=== PATIENT | male | born 1945 | race Caucasian/White ===

== ENCOUNTER → 2017-12-06 07:42 | Outpatient (CLI) | payer OTHER, SELFPAY ==
[2017-12-06 08:40] LABS: Add Manual Diff / Slide Review NO; Basophils Percent Auto 0.8 % (0-2); Eosinophils Percent Auto 5.8 % (2-4); Hematocrit 41.3 % (41-53); Hemoglobin 14.1 g/dL (13.5-17.5); Lymphocytes Percent Auto 32.5 % (25-40); Mean Corpuscular HGB Conc 34.2 % (30-36); Mean Corpuscular Hemoglobin 32.3 PG (26-34); Mean Corpuscular Volume 94.4 fL (80-100); Neutrophils Absolute Auto 2200 /uL (3000-5900); Neutrophils Percent Auto 50.9 % (50-75); Platelet Count 78 X10^3/uL (150-400); Red Blood Cell Count 4.37 X10^6/uL (4.5-5.9); Red Cell Distribution Width 13.4 % (11.6-14.8); White Blood Cell Count 4.4 X10^3/uL (4.5-11.0)
[2017-12-06 08:54] LABS: Alanine Aminotransferase 20 IU/L (21-72); Albumin 3.9 g/dL (3.5-5.0); Albumin Globulin Ratio 1.6 (1.0-2.8); Alkaline Phosphatase 46 U/L (38-126); Aspartate Aminotransferase 20 IU/L (17-59); BUN Creatinine Ratio 18.3 (6-22); Bilirubin Total 0.7 mg/dL (0.2-1.3); Blood Urea Nitrogen 22 mg/dL (9-20); Carbon Dioxide 32 mmol/L (22-32); Chloride 105 mmol/L (98-107); Cholesterol 198 mg/dL (140-199); Estimated Glomerular Filt Rate 59.3 mL/min (>60); Globulin 2.5 g/dL (1.7-4.1); Glucose 102 mg/dL (80-110); HDL Cholesterol 62 mg/dL (40-60); HEMOLYSIS < 15 (0-50); LDL Cholesterol Calculated 120 mg/dL (<100); Sodium 143 mmol/L (137-145); Total Protein 6.4 g/dL (6.3-8.2); Triglycerides 82 mg/dL (35-150)
== END ==
PROVIDERS: PCP Internal Medicine; Visit Provider Internal Medicine
DX: I10 Essential (primary) hypertension (principal); K21.9 Gastro-esophageal reflux disease without esophagitis; D69.6 Thrombocytopenia, unspecified
CPT/HCPCS: 36415; 80053; 80061; 85025

== ENCOUNTER → 2018-09-10 07:43 | Outpatient (CLI) | payer MEDICARE, SELFPAY ==
[2018-09-10 09:15] LABS: Blood Urea Nitrogen 19 mg/dL (9-20); Calcium 9.2 mg/dL (8.4-10.2); Carbon Dioxide 29 mmol/L (22-32); Chloride 103 mmol/L (98-107); Cholesterol 211 mg/dL (140-199); Estimated Glomerular Filt Rate > 60.0 mL/min (>60); Glucose 111 mg/dL (80-110); HDL Cholesterol 78 mg/dL (40-60); HEMOLYSIS < 15 (0-50); LDL Cholesterol Calculated 123 mg/dL (<100); Potassium 4.6 mmol/L (3.4-5.1); Sodium 137 mmol/L (137-145); Triglycerides 51 mg/dL (35-150)
== END ==
PROVIDERS: PCP Internal Medicine; Visit Provider Internal Medicine
DX: E78.00 Pure hypercholesterolemia, unspecified (principal); I10 Essential (primary) hypertension
CPT/HCPCS: 36415; 80048; 80061

== ENCOUNTER → 2018-10-02 07:30 | Outpatient (CLI) | payer MEDICARE, SELFPAY ==
--- NOTE | 2018-10-02 | DI.US.S_ITS ---
PROCEDURE: US ABD AORTA ANEURYSM SCREEN INDICATIONS: SCREENING FOR AAA TECHNIQUE: Real time scanning was performed of the aorta and iliac arteries, with image documentation. COMPARISON: None. FINDINGS: Aorta: Proximal aorta is not visualized. Mid-aorta measures 1.6 cm. Distal aortic diameter is 1.5 cm. Iliac arteries: Right common iliac artery measures 0.9 cm. Left common iliac artery measures 0.9 cm. IMPRESSION: No aneurysmal dilation of the abdominal aorta, noting the proximal portion is not visualized secondary to overlying bowel gas. Dictated by: Bere Vasquez M.D. on 10/02/2018 at 11:07 Approved by: Bere Vasquez M.D. on 10/02/2018 at 11:08
== END ==
PROVIDERS: PCP Internal Medicine; Visit Provider Internal Medicine
DX: Z13.6 Encounter for screening for cardiovascular disorders (principal)
CPT/HCPCS: 76706

== ENCOUNTER → 2019-06-26 07:00 | Outpatient (CLI) | payer MEDICARE, SELFPAY ==
--- NOTE | 2019-06-26 | DI.US.S_ITS ---
PROCEDURE: US ABDOMEN COMPLETE INDICATIONS: LEFT UPPER QUADRANT PAIN TECHNIQUE: Real-time scanning was performed of the abdominal and retroperitoneal organs, with image documentation. COMPARISON: None. FINDINGS: Liver: Liver is normal in size and homogeneous in echotexture. Gallbladder: The gallbladder appears normal Biliary ducts: Intrahepatic bile ducts are non-dilated. Extrahepatic bile duct caliber measures 4.5 mm. Normal is 6-7 mm or less in diameter, or 10 mm or less post-cholecystectomy. Pancreas: Visualized portions of the pancreas are sonographically normal. Spleen: Spleen is normal in size and homogeneous in echotexture. Kidneys: Kidneys are normal in size and echotexture. Right kidney measures 9.8 cm long; left kidney measures 10.3 cm long. No hydronephrosis or nephrolithiasis. No solid masses. Aorta: Visualized aorta is normal in caliber at less than 3 cm. Iliacs: Proximal common iliac arteries are normal in caliber at less than 2.5 cm. IVC: Intrahepatic inferior vena cava is patent. Miscellaneous: No free abdominal fluid. IMPRESSION: Source of current symptoms is not found. Depending on the clinical status followup by CT scanning may become necessary. Significant portions of the abdomen/retroperitoneum are poorly visualized by ultrasound due to overlying bowel gas. Dictated by: Tanner Mckenna M.D. on 06/26/2019 at 14:24 Approved by: Tanner Mckenna M.D. on 06/26/2019 at 14:29
--- NOTE | 2019-10-07 09:26 | ONC.MSW ---
Description: New Referral Navigation Activity: Reviewed referral for acuity, medical status, and immediate needs. Forwarded to scheduling for next available appt time.
== END ==
PROVIDERS: PCP Internal Medicine; Referring Provider Family Medicine; Visit Provider Family Medicine
DX: R10.12 Left upper quadrant pain (principal); D75.89 Other specified diseases of blood and blood-forming organs
CPT/HCPCS: 76700

== ENCOUNTER → 2019-11-15 14:20 | Outpatient (CLI) | payer MEDICARE, SELFPAY ==
[2019-11-15 16:37] LABS: BUN Creatinine Ratio 18.6 (6-22); Blood Urea Nitrogen 18 mg/dL (9-20); Calcium 9.1 mg/dL (8.4-10.2); Carbon Dioxide 30 mmol/L (22-32); Chloride 104 mmol/L (98-107); Estimated Glomerular Filt Rate > 60.0 mL/min (>60); Glucose 92 mg/dL (80-110); HEMOLYSIS < 15 (0-50); Potassium 4.3 mmol/L (3.4-5.1); Sodium 137 mmol/L (137-145)
== END ==
PROVIDERS: PCP Internal Medicine; Referring Provider Internal Medicine; Visit Provider Internal Medicine
DX: E78.00 Pure hypercholesterolemia, unspecified (principal); I10 Essential (primary) hypertension
CPT/HCPCS: 36415; 80048

== ENCOUNTER → 2020-08-14 14:36 | Outpatient (ROUT) | payer OTHER, SELFPAY ==
[2020-08-14 15:00] LABS: Add Manual Diff / Slide Review NO; Basophils Absolute Auto 0 /uL (0-100); Eosinophils Absolute Auto 100 /uL (0-450); Eosinophils Percent Auto 3.1 % (2-4); Hematocrit 40.1 % (41-53); Hemoglobin 13.5 g/dL (13.5-17.5); Lymphocytes Absolute Auto 900 /uL (1100-4500); Lymphocytes Percent Auto 24.7 % (25-40); Mean Corpuscular HGB Conc 33.6 % (30-36); Mean Corpuscular Hemoglobin 31.1 PG (26-34); Mean Corpuscular Volume 92.7 fL (80-100); Monocytes Absolute Auto 400 /uL (0-900); Monocytes Percent Auto 10.6 % (3-14); Neutrophils Absolute Auto 2200 /uL (1500-7000); Neutrophils Percent Auto 60.6 % (50-75); Platelet Count 75 X10^3/uL (150-400); Red Blood Cell Count 4.33 X10^6/uL (4.5-5.9); Red Cell Distribution Width 13.2 % (11.6-14.8); White Blood Cell Count 3.7 X10^3/uL (4.5-11.0)
== END ==
PROVIDERS: PCP Internal Medicine; Visit Provider Internal Medicine
DX: K62.5 Hemorrhage of anus and rectum (principal)
CPT/HCPCS: 85025

== ENCOUNTER 2021-05-03 13:27 | Emergency (ER) | payer MEDICARE, OTHER, SELFPAY ==
[2021-05-03] VITALS (7 sets, daily range): BP systolic 124–138; BP diastolic 60–64; PULSE 51–60; RESP 18; TEMP 36.5; O2SAT 97–98; BMI 26.5
--- NOTE | 2021-05-03 13:40 | DI.RAD.S_ITS ---
PROCEDURE: XR CHEST 1V INDICATIONS: chest pain TECHNIQUE: One view of the chest was acquired. COMPARISON: [facility], , CHEST 2 VIEW, 06/08/2016, 16:05. FINDINGS: Surgical changes and devices: None. Lungs and pleura: Lungs are clear. No pleural effusions or pneumothorax. Mediastinum: Mediastinal contours appear normal. Heart size is normal. Bones and chest wall: No suspicious bony lesions. Overlying soft tissues appear unremarkable. IMPRESSION: No acute cardiopulmonary pathology. Dictated by: René Andino M.D. on 05/03/2021 at 15:08 Approved by: René Andino M.D. on 05/03/2021 at 15:09
[2021-05-03 14:12] LABS: COVID19 -Nasal RAPID Negative (Negative)
[2021-05-03 14:25] LABS: Add Manual Diff / Slide Review NO; Basophils Absolute Auto 0 /uL (0-100); Basophils Percent Auto 0.8 % (0-2); Eosinophils Absolute Auto 200 /uL (0-450); Eosinophils Percent Auto 3.5 % (2-4); Hemoglobin 13.5 g/dL (13.5-17.5); Lymphocytes Absolute Auto 1000 /uL (1100-4500); Lymphocytes Percent Auto 18.3 % (25-40); Mean Corpuscular HGB Conc 34.5 % (30-36); Mean Corpuscular Hemoglobin 31.8 PG (26-34); Mean Corpuscular Volume 92.2 fL (80-100); Monocytes Absolute Auto 600 /uL (0-900); Monocytes Percent Auto 10.7 % (3-14); Neutrophils Absolute Auto 3700 /uL (1500-7000); Neutrophils Percent Auto 66.7 % (50-75); Platelet Count 85 X10^3/uL (150-400); Red Blood Cell Count 4.23 X10^6/uL (4.5-5.9); Red Cell Distribution Width 13.2 % (11.6-14.8); White Blood Cell Count 5.6 X10^3/uL (4.5-11.0)
[2021-05-03 14:38] LABS: Alanine Aminotransferase 20 IU/L (<50); Albumin 4.2 g/dL (3.5-5.0); Albumin Globulin Ratio 1.7 (1.0-2.8); Alkaline Phosphatase 60 U/L (38-126); Aspartate Aminotransferase 31 IU/L (17-59); BUN Creatinine Ratio 21.3 (6-22); Bilirubin Total 0.5 mg/dL (0.2-1.3); Blood Urea Nitrogen 23 mg/dL (9-20); Calcium 9.2 mg/dL (8.4-10.2); Carbon Dioxide 28 mmol/L (22-32); Chloride 105 mmol/L (98-107); Creatine Kinase 76 U/L (55-170); Estimated Glomerular Filt Rate > 60.0 mL/min (>60); Globulin 2.5 g/dL (1.7-4.1); Glucose 99 mg/dL (80-110); HEMOLYSIS < 15 (0-50); Lipase 95 U/L (23-300); Magnesium 2.2 mg/dL (1.6-2.3); Potassium 4.6 mmol/L (3.4-5.1); Sodium 137 mmol/L (137-145); Total Protein 6.7 g/dL (6.3-8.2)
[2021-05-03 14:49] LABS: Troponin I < 0.012 ng/mL (0.01-0.034)
--- NOTE | 2021-05-03 16:48 | ED_ITS ---
HPI - Chest Pain <Raciel Lawler PA-C - Last Filed: 05/03/21 18:28> General Chief Complaint: Chest Pain Stated Complaint: Chest pains Time Seen by Provider: 05/03/21 15:38 Source: patient Mode of arrival: Ambulatory History of Present Illness HPI narrative: 76-year-old male with past medical history hypercholesterolemia, hypertension, BPH presents to the ED with 1 day of left-sided chest pain. Patient states he was lifting some heavy weights yesterday but denies trauma. Patient states that his left-sided chest pain lasted for about an hour this morning before spontaneously resolving. Patient endorses feeling flushed and warm. Patient also states that he has had some night sweats over the last week, increased fatigue. Patient denies shortness of breath, nausea, vomiting, lightheadedness, dizziness, syncope. Related Data Home Medications Medication Instructions Recorded Confirmed ASCORBIC ACID/BIOFLAVONOIDS (C 1 cap PO Q DAY #0 08/20/11 01/21/21 1,143-[id number] Cap) Red Yeast Rice (#RED YEAST RICE) 600 mg PO BID #0 04/07/12 01/21/21 Vitamin Compound 8 tab DAILY 10/24/19 01/21/21 amlodipine 5 mg tablet 10 mg PO DAILY 10/24/19 01/21/21 glucosamine sulf dipot 1 cap PO DAILY 10/24/19 01/21/21 chlr,msm,chond 550 mg-C 30 mg-lana 1 mg capsule (Glucosamine Chondroitin) losartan 100 mg tablet 100 mg PO DAILY 10/24/19 01/21/21 terazosin 10 mg capsule 10 mg PO DAILY 10/24/19 01/21/21 Nmn 1 g DAILY 01/21/21 01/21/21 resveratrol 50 mg capsule mg PO DAILY 01/21/21 Allergies Allergy/AdvReac Type Severity Reaction Status Date / Time meloxicam [MELOXICAM] Allergy Unknown Unverified 07/12/17 12:03 simvastatin [SIMVASTATIN] Allergy Unknown Unverified 07/12/17 12:03 MELOXICAM Allergy Severe High Blood Uncoded 07/12/17 12:03 Pressure SIMVASTATIN Allergy Severe Muscle Uncoded 07/12/17 12:03 Stiffness Review of Systems <Raciel Lawler PA-C - Last Filed: 05/03/21 18:28> Review of Systems ROS Unobtainable: All systems reviewed & are unremarkable except as noted in HPI and below Constitutional Constitutional: Reports chills, Reports fatigue, Reports fever(s), Denies frequent falls, Reports lethargy and Denies weakness Eyes Eyes: Denies change in vision, Denies eye discharge, Denies irritation and Denies loss of vision ENT Ears, Nose, Mouth, and Throat: Denies change in voice, Denies dizziness, Denies neck pain, Denies sore throat and Denies throat swelling Cardiovascular Cardiovascular: Reports chest pain, Denies irregular heart rhythm, Denies lightheadedness, Denies palpitations, Denies dyspnea, Denies dyspnea on exertion and Denies orthopnea Respiratory Respiratory: Denies cough, Denies dyspnea, Denies dyspnea on exertion and Denies wheezing Gastrointestinal Gastrointestinal: Denies abdominal pain, Denies change in bowel habits, Denies diarrhea, Denies nausea and Denies vomiting Genitourinary Genitourinary: Denies hematuria, Denies flank pain, Denies urinary incontinence and Denies urinary urgency Musculoskeletal Musculoskeletal: Denies back pain, Denies muscle weakness, Denies neck pain, Denies numbness and Denies tingling Integumentary/Breasts Skin/Breast: Denies pruritus, Denies erythema, Denies rash and Denies wounds Neurologic Neurologic: Denies behavioral changes, Denies confusion, Denies dizziness, Denies frequent falls, Denies loss of vision, Denies numbness, Denies tingling and Denies weakness Psychiatric Psychiatric: Denies anxiety, Denies behavioral changes, Denies confusion, Denies depression, Denies homicidal ideation and Denies suicidal ideation Endocrine Endocrine: Reports fatigue, Denies flushing and Denies palpitations Hematologic/Lymphatic Hematologic/Lymphatic: Denies easy bruising Allergic/Immunologic Allergic/Immunologic: Denies urticaria, Denies throat swelling and Denies wheezing Patient History <Raciel Lawler PA-C - Last Filed: 05/03/21 18:28> Medical History GERD (gastroesophageal reflux disease) Hyperlipidemia Hypertension Migraine Surgical History H/O rotator cuff surgery H/O vasectomy Social History Smoking Status: Former smoker alcohol intake: former (quitted wine in early 2019) substance use type: marijuana Smoking Status: Former smoker Substance Use Type: marijuana Exam <Raciel Lawler PA-C - Last Filed: 05/03/21 18:28> Initial Vital Signs Initial Vital Signs: Vital Signs Temperature 97.7 F 05/03/21 13:33 Pulse Rate 57 L 05/03/21 13:33 Respiratory Rate 18 05/03/21 13:33 Blood Pressure 134/63 05/03/21 13:33 Pulse Oximetry 98 05/03/21 13:33 Const General: cooperative, healthy appearing and comfortable HENMT Head: normal to inspection Eyes General: appearance normal, both eyes and all related structures Neck Neck: normal visual inspection Chest Chest: normal inspection of the chest Resp Effort & Inspection: normal respiratory effort Auscultation: clear to auscultation bilaterally Cardio Rate: regular rate Rhythm: regular rhythm GI Other: Abdomen is soft, nondistended, nontender to palpation. General: No CVA tenderness Skin General: no rashes or lesions noted Neuro General: patient alert, patient awake and patient oriented x3 Extrem General: normal to inspection Psych Appearance: grossly normal <Nayeli Quach MD - Last Filed: 05/03/21 18:33> Initial Vital Signs Initial Vital Signs: Vital Signs Temperature 97.7 F 05/03/21 13:33 Pulse Rate 57 L 05/03/21 13:33 Respiratory Rate 18 05/03/21 13:33 Blood Pressure 134/63 05/03/21 13:33 Pulse Oximetry 98 05/03/21 13:33 Course <Raciel Lawler PA-C - Last Filed: 05/03/21 18:28> Orders Ordered: ED Orders 05/03/21 13:40 XR chest 1V Stat EKG-12 Lead Stat 05/03/21 13:41 COVID19 -Nasal swab/Pre-Proc Stat 05/03/21 14:15 Complete Blood Count AUTO DIFF Stat Comprehensive Metabolic Panel Stat D Dimer Stat Lipase Stat Magnesium Stat NT-proBNP (BNP-Adult 18+) Stat Troponin & CK Cardiac Panel Stat Troponin I Stat Vital Signs Vital signs: Vital Signs - 8 hr 05/03/21 13:33 05/03/21 16:00 05/03/21 16:01 Temperature 97.7 F Pulse Rate 57 L 59 L 60 Respiratory Rate 18 18 Blood Pressure 134/63 124/60 Pulse Oximetry 98 97 98 05/03/21 16:30 05/03/21 17:00 05/03/21 17:30 Temperature Pulse Rate 59 L 56 L 52 L Respiratory Rate 18 18 Blood Pressure 132/60 131/63 129/62 Pulse Oximetry 97 98 98 05/03/21 18:00 Temperature Pulse Rate 51 L Respiratory Rate 18 Blood Pressure 138/64 Pulse Oximetry 97 <Nayeli Quach MD - Last Filed: 05/03/21 18:33> Orders Ordered: ED Orders 05/03/21 13:40 XR chest 1V Stat EKG-12 Lead Stat 05/03/21 13:41 COVID19 -Nasal swab/Pre-Proc Stat 05/03/21 14:15 Complete Blood Count AUTO DIFF Stat Comprehensive Metabolic Panel Stat D Dimer Stat Lipase Stat Magnesium Stat NT-proBNP (BNP-Adult 18+) Stat Troponin & CK Cardiac Panel Stat Troponin I Stat Vital Signs Vital signs: Vital Signs - 8 hr 05/03/21 13:33 05/03/21 16:00 05/03/21 16:01 Temperature 97.7 F Pulse Rate 57 L 59 L 60 Respiratory Rate 18 18 Blood Pressure 134/63 124/60 Pulse Oximetry 98 97 98 05/03/21 16:30 05/03/21 17:00 05/03/21 17:30 Temperature Pulse Rate 59 L 56 L 52 L Respiratory Rate 18 18 Blood Pressure 132/60 131/63 129/62 Pulse Oximetry 97 98 98 05/03/21 18:00 Temperature Pulse Rate 51 L Respiratory Rate 18 Blood Pressure 138/64 Pulse Oximetry 97 MDM - Chest Pain <Raciel Lawler PA-C - Last Filed: 05/03/21 18:28> Lab Data Lab results narrative: Labs within normal limits Result diagrams: 05/03/21 14:15 05/03/21 14:15 Labs: Lab Results 05/03/21 05/03/21 05/03/21 Range/Units 13:41 14:15 14:15 WBC 5.6 (4.5-11.0) X10^3/uL RBC 4.23 L (4.5-5.9) X10^6/uL Hgb 13.5 (13.5-17.5) g/dL Hct 39.0 L (41-53) % MCV 92.2 (80-100) fL MCH 31.8 (26-34) PG MCHC 34.5 (30-36) % RDW 13.2 (11.6-14.8) % Plt Count 85 L (150-400) X10^3/uL Neut % (Auto) 66.7 (50-75) % Lymph % (Auto) 18.3 L (25-40) % [place] % (Auto) 10.7 (3-14) % Eos % (Auto) 3.5 (2-4) % Baso % (Auto) 0.8 (0-2) % Neut # (Auto) 3700 (2708-1196) /uL Lymph # (Auto) 1000 L (0104-7392) /uL [place] # (Auto) 600 (0-900) /uL Eos # (Auto) 200 (0-450) /uL Baso # (Auto) 0 (0-100) /uL D-Dimer (<230) ng/mL Sodium 137 (137-145) mmol/L Potassium 4.6 (3.4-5.1) mmol/L Chloride 105 (98-107) mmol/L Carbon Dioxide 28 (22-32) mmol/L BUN 23 H (9-20) mg/dL Creatinine 1.08 (0.66-1.25) mg/dL Estimated GFR > 60.0 (>60) mL/min BUN/Creatinine Ratio 21.3 (6-22) Glucose 99 (80-110) mg/dL Calcium 9.2 (8.4-10.2) mg/dL Magnesium 2.2 (1.6-2.3) mg/dL Total Bilirubin 0.5 (0.2-1.3) mg/dL AST 31 (17-59) IU/L ALT 20 (<50) IU/L Alkaline Phosphatase 60 (38-126) U/L Total Creatine Kinase 76 (55-170) U/L CK-MB (CK-2) TNP CK-MB (CK-2) Rel Index TNP Troponin I < 0.012 (0.01-0.034) ng/mL NT-Pro-B Natriuret Pep (<450) pg/mL Total Protein 6.7 (6.3-8.2) g/dL Albumin 4.2 (3.5-5.0) g/dL Globulin 2.5 (1.7-4.1) g/dL Albumin/Globulin Ratio 1.7 (1.0-2.8) Lipase 95 (23-300) U/L SARS-CoV-2 (PCR) Negative (Negative) 05/03/21 05/03/21 Range/Units 14:15 14:15 WBC (4.5-11.0) X10^3/uL RBC (4.5-5.9) X10^6/uL Hgb (13.5-17.5) g/dL Hct (41-53) % MCV (80-100) fL MCH (26-34) PG MCHC (30-36) % RDW (11.6-14.8) % Plt Count (150-400) X10^3/uL Neut % (Auto) (50-75) % Lymph % (Auto) (25-40) % [place] % (Auto) (3-14) % Eos % (Auto) (2-4) % Baso % (Auto) (0-2) % Neut # (Auto) (2168-7005) /uL Lymph # (Auto) (2215-8801) /uL [place] # (Auto) (0-900) /uL Eos # (Auto) (0-450) /uL Baso # (Auto) (0-100) /uL D-Dimer < 200 (<230) ng/mL Sodium (137-145) mmol/L Potassium (3.4-5.1) mmol/L Chloride (98-107) mmol/L Carbon Dioxide (22-32) mmol/L BUN (9-20) mg/dL Creatinine (0.66-1.25) mg/dL Estimated GFR (>60) mL/min BUN/Creatinine Ratio (6-22) Glucose (80-110) mg/dL Calcium (8.4-10.2) mg/dL Magnesium (1.6-2.3) mg/dL Total Bilirubin (0.2-1.3) mg/dL AST (17-59) IU/L ALT (<50) IU/L Alkaline Phosphatase (38-126) U/L Total Creatine Kinase (55-170) U/L CK-MB (CK-2) CK-MB (CK-2) Rel Index Troponin I < 0.012 (0.01-0.034) ng/mL NT-Pro-B Natriuret Pep 200 (<450) pg/mL Total Protein (6.3-8.2) g/dL Albumin (3.5-5.0) g/dL Globulin (1.7-4.1) g/dL Albumin/Globulin Ratio (1.0-2.8) Lipase (23-300) U/L SARS-CoV-2 (PCR) (Negative) Urine Dip Bedside Urine Glucose Negative Bedside Urine Bilirubin - Negative Bedside Urine Ketone - Negative Urine Specific [place] 1.020 Bedside Urine Occult Blood - Negative Bedside Urine pH 7.0 Bedside Urine Protein - Negative Bedside Urine Urobilinogen - Negative Bedside Urine Nitrite - Negative Bedside Urine Leukocytes - Negative Esterase Imaging Data Chest x-ray: Radiologist's Impression: PROCEDURE:? XR CHEST 1V ? INDICATIONS:? chest pain ? TECHNIQUE:? One view of the chest was acquired.? ? COMPARISON:? [facility], , CHEST 2 VIEW, 06/08/2016, 16:05. ? FINDINGS:? ? Surgical changes and devices:? None.? ? Lungs and pleura:? Lungs are clear.? No pleural effusions or pneumothorax.? ? Mediastinum:? Mediastinal contours appear normal.? Heart size is normal.? ? Bones and chest wall:? No suspicious bony lesions.? Overlying soft tissues appear unremarkable.? ? IMPRESSION:? No acute cardiopulmonary pathology. ? ? Dictated by: René Andino M.D. on 05/03/2021 at 15:08 ? ? Approved by: René Andino M.D. on 05/03/2021 at 15:09 ? ECG Data Interpretation: Sinus bradycardia, no axis deviation, no acute ST-T changes MDM Narrative Medical decision making narrative: 76-year-old male with past medical history hypercholesterolemia, hypertension, B PH presents to the ED with 1 day of left-sided chest pain. Concern for ACS versus acute heart failure versus PE versus COVID-19 infection versus pneumonia vs UTI. Will order EKG, chest x-ray, labs, troponin, BNP, D-dimer, UA. Will reassess. Labs within normal limits. Troponin x2 negative. Chest x-ray, EKG without acute changes. Discharge home with ED return precautions. Patient verbalized understanding. <Nayeli Quach MD - Last Filed: 05/03/21 18:33> Lab Data Labs: Lab Results 05/03/21 05/03/21 05/03/21 Range/Units 13:41 14:15 14:15 WBC 5.6 (4.5-11.0) X10^3/uL RBC 4.23 L (4.5-5.9) X10^6/uL Hgb 13.5 (13.5-17.5) g/dL Hct 39.0 L (41-53) % MCV 92.2 (80-100) fL MCH 31.8 (26-34) PG MCHC 34.5 (30-36) % RDW 13.2 (11.6-14.8) % Plt Count 85 L (150-400) X10^3/uL Neut % (Auto) 66.7 (50-75) % Lymph % (Auto) 18.3 L (25-40) % [place] % (Auto) 10.7 (3-14) % Eos % (Auto) 3.5 (2-4) % Baso % (Auto) 0.8 (0-2) % Neut # (Auto) 3700 (7235-3005) /uL Lymph # (Auto) 1000 L (1862-5082) /uL [place] # (Auto) 600 (0-900) /uL Eos # (Auto) 200 (0-450) /uL Baso # (Auto) 0 (0-100) /uL D-Dimer (<230) ng/mL Sodium 137 (137-145) mmol/L Potassium 4.6 (3.4-5.1) mmol/L Chloride 105 (98-107) mmol/L Carbon Dioxide 28 (22-32) mmol/L BUN 23 H (9-20) mg/dL Creatinine 1.08 (0.66-1.25) mg/dL Estimated GFR > 60.0 (>60) mL/min BUN/Creatinine Ratio 21.3 (6-22) Glucose 99 (80-110) mg/dL Calcium 9.2 (8.4-10.2) mg/dL Magnesium 2.2 (1.6-2.3) mg/dL Total Bilirubin 0.5 (0.2-1.3) mg/dL AST 31 (17-59) IU/L ALT 20 (<50) IU/L Alkaline Phosphatase 60 (38-126) U/L Total Creatine Kinase 76 (55-170) U/L CK-MB (CK-2) TNP CK-MB (CK-2) Rel Index TNP Troponin I < 0.012 (0.01-0.034) ng/mL NT-Pro-B Natriuret Pep (<450) pg/mL Total Protein 6.7 (6.3-8.2) g/dL Albumin 4.2 (3.5-5.0) g/dL Globulin 2.5 (1.7-4.1) g/dL Albumin/Globulin Ratio 1.7 (1.0-2.8) Lipase 95 (23-300) U/L SARS-CoV-2 (PCR) Negative (Negative) 05/03/21 05/03/21 Range/Units 14:15 14:15 WBC (4.5-11.0) X10^3/uL RBC (4.5-5.9) X10^6/uL Hgb (13.5-17.5) g/dL Hct (41-53) % MCV (80-100) fL MCH (26-34) PG MCHC (30-36) % RDW (11.6-14.8) % Plt Count (150-400) X10^3/uL Neut % (Auto) (50-75) % Lymph % (Auto) (25-40) % [place] % (Auto) (3-14) % Eos % (Auto) (2-4) % Baso % (Auto) (0-2) % Neut # (Auto) (4792-1391) /uL Lymph # (Auto) (3309-0929) /uL [place] # (Auto) (0-900) /uL Eos # (Auto) (0-450) /uL Baso # (Auto) (0-100) /uL D-Dimer < 200 (<230) ng/mL Sodium (137-145) mmol/L Potassium (3.4-5.1) mmol/L Chloride (98-107) mmol/L Carbon Dioxide (22-32) mmol/L BUN (9-20) mg/dL Creatinine (0.66-1.25) mg/dL Estimated GFR (>60) mL/min BUN/Creatinine Ratio (6-22) Glucose (80-110) mg/dL Calcium (8.4-10.2) mg/dL Magnesium (1.6-2.3) mg/dL Total Bilirubin (0.2-1.3) mg/dL AST (17-59) IU/L ALT (<50) IU/L Alkaline Phosphatase (38-126) U/L Total Creatine Kinase (55-170) U/L CK-MB (CK-2) CK-MB (CK-2) Rel Index Troponin I < 0.012 (0.01-0.034) ng/mL NT-Pro-B Natriuret Pep 200 (<450) pg/mL Total Protein (6.3-8.2) g/dL Albumin (3.5-5.0) g/dL Globulin (1.7-4.1) g/dL Albumin/Globulin Ratio (1.0-2.8) Lipase (23-300) U/L SARS-CoV-2 (PCR) (Negative) Urine Dip Bedside Urine Glucose Negative Bedside Urine Bilirubin - Negative Bedside Urine Ketone - Negative Urine Specific [place] 1.020 Bedside Urine Occult Blood - Negative Bedside Urine pH 7.0 Bedside Urine Protein - Negative Bedside Urine Urobilinogen - Negative Bedside Urine Nitrite - Negative Bedside Urine Leukocytes - Negative Esterase Discharge Plan Departure Patient Disposition: Home Clinical Impression: Chest pain Instructions: DI for Chest Pain Activity Restrictions/Additional Instructions: You were evaluated in the ED for chest pain. Your workup including chest x-ray, EKG, labs were normal. Your chest pain is likely due to musculoskeletal sprain/strain. Return to the ED if your symptoms worsen including worsening chest pain, shortness of breath. Please follow-up with your PCP. Prescriptions: No Action ASCORBIC ACID/BIOFLAVONOIDS (C 1,789-Ttvfelwijiybb-Gk Cap) 1 cap PO Q DAY Qty: 0 0RF Red Yeast Rice (#RED YEAST RICE) 600 mg PO BID Qty: 0 0RF amlodipine 5 mg Tablet 10 mg PO DAILY 0RF losartan 100 mg Tablet 100 mg PO DAILY 0RF terazosin 10 mg Capsule 10 mg PO DAILY 0RF Glucosamine Chondroitin 550-30-1 mg Capsule 1 cap PO DAILY 0RF Vitamin Compound 8 tab DAILY 0RF resveratrol 50 mg Capsule PO DAILY 0RF Nmn 1 g DAILY 0RF Referrals: Vamsi Narvaez MD [Primary Care Provider] - <Nayeli Quach MD - Last Filed: 05/03/21 18:33> Cosign ED Attending Cosignature Attestation: I was immediately available in the department for consultation throughout this patient's visit. I agree with documentation as above. Nayeli Quach MD
[2021-05-03 17:03] LABS: D Dimer < 200 ng/mL (<230)
[2021-05-03 17:35] LABS: NT-proBNP (BNP-Adult 18+) 200 pg/mL (<450); Troponin I < 0.012 ng/mL (0.01-0.034)
== END 2021-05-03 18:24 | disposition home or self-care (01) ==
PROVIDERS: Emergency Medicine; Emergency Provider Student in an Organized Health Care Education/Training Program; PCP Internal Medicine
DX: R07.9 Chest pain, unspecified (principal); R53.83 Other fatigue; Z20.822 Contact with and (suspected) exposure to COVID-19
CPT/HCPCS: 36415; 71045; 80053; 81003; 82550; 83690; 83735; 83880; 84484; 85025; 85379; 87635; 93005; 99283; 99284; C9803

== ENCOUNTER → 2021-08-17 14:41 | Outpatient (CLI) | payer OTHER, SELFPAY ==
--- NOTE | 2021-08-17 14:42 | DI.US.S_ITS ---
PROCEDURE: US CAROTID DOPPLER BI INDICATIONS: TIA TECHNIQUE: Color and pulse Doppler interrogation was performed of both carotid systems, with image documentation and velocity measurements. COMPARISON: None. FINDINGS: Stenosis calculations are based on SRU (Society of Radiologists in Ultrasound) criteria. The flow velocities and the arterial waveforms are normal within both carotid arterial systems. Atherosclerotic plaque is seen on both sides. The estimated degree of internal carotid artery stenosis is less than 50%. Antegrade flow is confirmed within both vertebral arteries. IMPRESSION: No hemodynamically significant stenosis is seen. Atherosclerotic plaque is noted bilaterally. Dictated by: Artur Alanis M.D. on 08/17/2021 at 14:24 Approved by: Artur Alanis M.D. on 08/17/2021 at 14:25
== END ==
PROVIDERS: PCP Internal Medicine; Referring Provider Internal Medicine; Visit Provider Internal Medicine
DX: G45.9 Transient cerebral ischemic attack, unspecified (principal)
CPT/HCPCS: 93880

== ENCOUNTER → 2021-09-13 11:54 | Outpatient (CLI) | payer OTHER, SELFPAY ==
--- NOTE | 2021-09-13 11:55 | DI.MRI.S_ITS ---
PROCEDURE: MR BRAIN (IAC) WWO CON INDICATIONS: Sensorineural hearing loss, bilateral TECHNIQUE: Noncontrast sagittal T1 spin echo, axial FLAIR, axial gradient echo, axial diffusion and ADC through the brain. Axial thin-slice 3D CISS, coronal TruFISP, axial T1 spin echo with fat saturation through the internal auditory canals. After the administration of contrast, thin slice axial and coronal T1 spin echo with fat saturation through the internal auditory canals, and axial T1 spin echo with fat saturation through the brain. COMPARISON: None. FINDINGS: Image quality: Excellent. Cerebellopontine angles: No cerebellopontine angle masses. Inner ear structures appear normally formed. No suspicious enhancement in the internal auditory canal or along the course of the 7th cranial nerve. CSF spaces: Ventricles are normal in size and shape. No extra-axial fluid collections. Basal cisterns are patent. Brain: No intracranial bleeds or mass effects. There is mild, diffuse cerebral volume loss. There are minimal periventricular and subcortical white matter chronic microvascular ischemic changes. Lou-white matter interface is intact. No abnormal intracranial enhancement. Diffusion weighted images demonstrate no acute ischemic insults. Brainstem appears normal. Normal intravascular flow voids are present. Dural sinuses demonstrate normal postcontrast enhancement. Skull and face: Calvarial marrow signal is normal. Orbits appear normal. Sinuses: Sinuses and mastoids are clear. IMPRESSION: 1. No evidence of vestibular schwannoma. 2. No abnormal intracranial mass or suspicious postcontrast enhancement. 3. Mild, diffuse cerebral volume loss. 4. Minimal periventricular and subcortical white matter chronic microvascular ischemic change. Dictated by: Perla Wright MD, PhD on 09/13/2021 at 15:19 Approved by: Perla Wright MD, PhD on 09/13/2021 at 15:22
== END ==
PROVIDERS: PCP Internal Medicine; Referring Provider Otolaryngology; Visit Provider Otolaryngology
DX: H90.3 Sensorineural hearing loss, bilateral (principal); H93.12 Tinnitus, left ear
CPT/HCPCS: 70553; A9579

== ENCOUNTER → 2022-03-18 11:34 | Outpatient (CLI) | payer OTHER, SELFPAY ==
--- NOTE | 2022-03-18 | DI.RAD.S_ITS ---
PROCEDURE: XR CHEST 2V INDICATIONS: Upper respiratory infection. Cough. TECHNIQUE: 2 views of the chest were acquired. COMPARISON: [facility], TIP, XR CHEST 1V, 05/03/2021, 14:03. [facility], TIP, CHEST 2 VIEW, 06/08/2016, 16:05. FINDINGS: Surgical changes and devices: None. Lungs and pleura: Lungs are clear. No pleural effusions or pneumothorax. Mediastinum: Mediastinal contours are normal. Heart size is normal. Bones and chest wall: No suspicious bony abnormalities. Soft tissues appear unremarkable. IMPRESSION: No acute cardiopulmonary abnormality. Dictated by: Lucius Ball M.D. on 03/18/2022 at 14:42 Approved by: Lucius Ball M.D. on 03/18/2022 at 14:45
== END ==
PROVIDERS: PCP Internal Medicine; Referring Provider Internal Medicine; Visit Provider Internal Medicine
DX: J06.9 Acute upper respiratory infection, unspecified (principal)
CPT/HCPCS: 71046

== ENCOUNTER 2022-04-20 18:27 | Emergency (ER) | payer OTHER, SELFPAY ==
[2022-04-20 18:34] VITALS: BP 146/65; PULSE 78; RESP 20; TEMP 36.4; O2SAT 98; BMI 26.5
[2022-04-20 19:08] LABS: Add Manual Diff / Slide Review NO; Basophils Absolute Auto 100 /uL (0-100); Basophils Percent Auto 1.2 % (0-2); Eosinophils Absolute Auto 200 /uL (0-450); Eosinophils Percent Auto 2.7 % (2-4); Hematocrit 40.1 % (41-53); Hemoglobin 13.7 g/dL (13.5-17.5); Lymphocytes Absolute Auto 1200 /uL (1100-4500); Lymphocytes Percent Auto 19.3 % (25-40); Mean Corpuscular HGB Conc 34.2 % (30-36); Mean Corpuscular Hemoglobin 31.9 PG (26-34); Mean Corpuscular Volume 93.2 fL (80-100); Monocytes Absolute Auto 800 /uL (0-900); Monocytes Percent Auto 12.5 % (3-14); Neutrophils Absolute Auto 4000 /uL (1500-7000); Neutrophils Percent Auto 64.3 % (50-75); Platelet Count 82 X10^3/uL (150-400); Red Cell Distribution Width 14.1 % (11.6-14.8); White Blood Cell Count 6.3 X10^3/uL (4.5-11.0)
--- NOTE | 2022-04-20 21:06 | DI.CT.S_ITS ---
PROCEDURE: CT KIDNEY URETER BLADDER (KUB) INDICATIONS: Right side pain TECHNIQUE: Axial sections were acquired from the lung bases to the pubic symphysis. Coronal and sagittal reformats were performed. For radiation dose reduction, the following was used: automated exposure control, adjustment of mA and/or kV according to patient size. COMPARISON: None. FINDINGS: Image quality: Excellent. Lung bases: There is minimal atelectasis. Heart: Heart is normal in size. URINARY: Right Kidney and Ureter: No stones or hydronephrosis. There is nonspecific perinephric stranding. No hydroureter. Left Kidney and Ureter: No stones or hydronephrosis. There is nonspecific perinephric stranding. No hydroureter. Bladder: Normal wall thickness. No stones. ABDOMEN: Liver: Noncontrast evaluation of the liver demonstrates no discrete mass. Gallbladder: Within normal limits without calcified gallstones. Biliary ducts: No biliary ductal dilatation. Pancreas: Unremarkable. Spleen: Normal in size. Adrenal Glands: No adrenal nodules. Stomach and Bowel: Stomach, small bowel loops, and colon are normal in caliber and wall thickness. The appendix is normal in appearance. There is colonic diverticulosis without acute diverticulitis. Peritoneum: No abnormal intraperitoneal fluid. No free air. Ventral Wall: No hernia. Abdominal Nodes: No retroperitoneal or mesenteric adenopathy by size criteria. Vessels: Aorta and inferior vena cava are normal in size. PELVIS: Pelvic Organs: Unremarkable. Pelvic Nodes: No enlarged lymph nodes. Miscellaneous: No inguinal hernias identified. Bones: Visualized osseous structures demonstrate no suspicious focal lesions. IMPRESSION: 1. No nephrolithiasis or obstructive uropathy. 2. Mild nonspecific perinephric stranding bilaterally. Recommend correlation clinically for possible pyelonephritis. 3. No evidence of appendicitis. Dictated by: Aldo Palm M.D. on 04/20/2022 at 22:20 Approved by: Aldo Palm M.D. on 04/20/2022 at 22:23
--- NOTE | 2022-04-20 21:07 | ED.ABDPAIN ---
HPI - Abdominal Pain General Chief Complaint: Abdominal Pain Stated Complaint: Pain in side, Warm to the touch Time Seen by Provider: 04/20/22 20:58 Source: patient Mode of arrival: Ambulatory History of Present Illness HPI narrative: Patient comes in from home with . Complains of constant right lower abdominal pain that radiates superiorly to the chest. Does not radiate to the groin or genitalia. No changes in his urination other this morning he usually needs a urinate but could not and it took him awhile to start urinating again. This morning he did have painful urination when he woke up. He states he gets up frequently through the night is his baseline to urinate but he did not do as much last night. No pain last night. No history of kidney stones. No abdominal surgical history. No appendectomy. No nausea or vomiting. No dysuria or hematuria. No diaphoresis. No back pain. Patient states constant sharp pain dull pain 4/10 but will go up higher at times. Related Data Home Medications Medication Instructions Recorded Confirmed ASCORBIC ACID/BIOFLAVONOIDS (C 1 cap PO Q DAY ##0 08/20/11 01/31/22 1,519-Tpjosrhqbvpyf-Sd Cap) Red Yeast Rice (#RED YEAST RICE) 600 mg PO BID ##0 04/07/12 01/31/22 Vitamin Compound 8 tab DAILY 10/24/19 01/31/22 amlodipine 5 mg tablet 10 mg PO DAILY 10/24/19 01/21/21 glucosamine sulf dipot 4 cap PO DAILY 10/24/19 01/31/22 chlr,msm,chond 550 mg-C 30 mg-lana 1 mg capsule (Glucosamine Chondroitin) losartan 100 mg tablet 100 mg PO DAILY 10/24/19 01/31/22 terazosin 10 mg capsule 10 mg PO DAILY 10/24/19 01/31/22 Nmn 1 g DAILY 01/21/21 01/31/22 resveratrol 50 mg capsule 50 mg PO DAILY 01/21/21 01/31/22 Previous Rx's Medication Instructions Recorded cefpodoxime 200 mg tablet 200 mg PO BID #20 tabs 04/20/22 Allergies Allergy/AdvReac Type Severity Reaction Status Date / Time meloxicam [MELOXICAM] Allergy Unknown Verified 04/20/22 23:08 simvastatin [SIMVASTATIN] Allergy Unknown Verified 04/20/22 23:08 MELOXICAM Allergy Severe High Blood Uncoded 04/20/22 23:08 Pressure SIMVASTATIN Allergy Severe Muscle Uncoded 04/20/22 23:08 Stiffness Review of Systems Review of Systems Narrative: GENERAL: negative chills, fatigue, malaise, fever, sweats. HEENT: negative sinus pain, ear pain, sore throat RESPIRATORY: negative dyspnea, cough CARDIOVASCULAR: negative chest pain, palpitations GASTROINTESTINAL: negative nausea, vomiting, positive abdominal pain : negative dysuria, frequency, hematuria MUSCULOSKELETAL: negative muscle or bony pain SKIN: negative rash, skin lesions NEUROLOGIC: negative weakness, numbness ROS Unobtainable: All systems reviewed & are unremarkable except as noted in HPI and below Patient History Medical History GERD (gastroesophageal reflux disease) Hyperlipidemia Hypertension Migraine Surgical History H/O rotator cuff surgery H/O vasectomy Social History Smoking Status: Former smoker alcohol intake: former (quitted wine in early 2019) substance use type: marijuana Smoking Status: Former smoker Substance Use Type: marijuana Exam Narrative Exam Narrative: GENERAL: in no distress, not toxic not dyspneic HEAD: Normocephalic. EYES: Pupils equal round No scleral icterus. ENT: Mucous membranes moist. NECK: Trachea midline. CARDIOVASCULAR: Regular rate and rhythm without murmurs RESPIRATORY: Clear to auscultation. Breath sounds equal bilaterally. No wheezes, rales, or rhonchi. GASTROINTESTINAL: Abdomen soft, non-tender, no pain out of portion to exam. No McBurney point tenderness. Abdomen is soft nontender. No CVA tenderness. No peritoneal signs. Bowel sounds are present. EXTREMITIES: No gross deformities. BACK: No flank tenderness. NEURO: AOx4. SKIN: Warm and dry PSYCH: Not anxious, is cooperative Initial Vital Signs Initial Vital Signs: Vital Signs Temperature 97.6 F 04/20/22 18:34 Pulse Rate 78 04/20/22 18:34 Respiratory Rate 20 04/20/22 18:34 Blood Pressure 146/65 H 04/20/22 18:34 Pulse Oximetry 98 04/20/22 18:34 Oxygen Delivery Method 04/20/22 18:34 Course Orders Ordered: ED Orders 04/20/22 21:06 CT kidney ureter bladder (KUB) Stat Discontinued Medications Ceftriaxone Sodium 2,000 mg/ (Sodium Chloride) 100 mls @ 200 mls/hr IV NOW ONE Stop: 04/20/22 23:02 Last Infusion: 04/20/22 23:48 Dose: 0 mls/hr Documented By: Admin: 04/20/22 23:09 Dose: 200 mls/hr Documented By: ALEJANDRA Ketorolac Tromethamine (Ketorolac 30 Mg/Ml Vial) 15 mg IV NOW ONE Stop: 04/20/22 21:07 Last Admin: 04/20/22 21:18 Dose: 15 mg Documented By: RATEMIO Ondansetron HCl (Ondansetron 4 Mg Odt) 4 mg PO NOW PRN PRN Reason: Nausea And Vomiting Ondansetron HCl (Ondansetron 4 Mg/2 Ml Inj) 4 mg IV NOW PRN PRN Reason: Nausea And Vomiting Vital Signs Vital signs: Vital Signs - 8 hr 04/20/22 18:34 Temperature 97.6 F Pulse Rate 78 Respiratory Rate 20 Blood Pressure 146/65 H Pulse Oximetry 98 Oxygen Delivery Method Room Air MDM - Abdominal Pain Lab Data Result diagrams: 04/20/22 18:56 04/20/22 18:50 Labs: Lab Results 04/20/22 04/20/22 Range/Units 18:50 18:56 WBC 6.3 (4.5-11.0) X10^3/uL RBC 4.30 L (4.5-5.9) X10^6/uL Hgb 13.7 (13.5-17.5) g/dL Hct 40.1 L (41-53) % MCV 93.2 (80-100) fL MCH 31.9 (26-34) PG MCHC 34.2 (30-36) % RDW 14.1 (11.6-14.8) % Plt Count 82 L (150-400) X10^3/uL Neut % (Auto) 64.3 (50-75) % Lymph % (Auto) 19.3 L (25-40) % [place] % (Auto) 12.5 (3-14) % Eos % (Auto) 2.7 (2-4) % Baso % (Auto) 1.2 (0-2) % Neut # (Auto) 4000 (4566-5845) /uL Lymph # (Auto) 1200 (7847-4668) /uL [place] # (Auto) 800 (0-900) /uL Eos # (Auto) 200 (0-450) /uL Baso # (Auto) 100 (0-100) /uL Sodium 137 (137-145) mmol/L Potassium 4.3 (3.4-5.1) mmol/L Chloride 106 (98-107) mmol/L Carbon Dioxide 27 (22-32) mmol/L BUN 26 H (9-20) mg/dL Creatinine 1.06 (0.66-1.25) mg/dL Estimated GFR > 60 (>60) mL/min BUN/Creatinine Ratio 24.5 H (6-22) Glucose 85 (80-110) mg/dL Calcium 9.0 (8.4-10.2) mg/dL Total Bilirubin 0.4 (0.2-1.3) mg/dL AST 25 (17-59) IU/L ALT 23 (<50) IU/L Alkaline Phosphatase 59 (38-126) U/L Total Protein 6.3 (6.3-8.2) g/dL Lipase 124 (23-300) U/L Point of care testing: Urine Dip Bedside Urine Glucose Negative Bedside Urine Bilirubin - Negative Bedside Urine Ketone - Negative Urine Specific [place] 1.030 Bedside Urine Occult Blood - Negative Bedside Urine pH 6.0 Bedside Urine Protein - Negative Bedside Urine Urobilinogen - Negative Bedside Urine Nitrite - Negative Bedside Urine Leukocytes - Negative Esterase Imaging Data CT scan - abdomen/pelvis: Radiologist's Impression: [address] [address] [address] Scan Report Signed Patient: Trev Jones MR#: [id number] : 1945 Acct:[id number] Age/Sex: 77 / M Date of Service: 04/20/22 Loc: ED Accession Number: [id number] ?? Procedure: CT kidney ureter bladder (KUB) Ordering Provider: Jaxson Schuster MD PROCEDURE:? CT KIDNEY URETER BLADDER (KUB) ? INDICATIONS:? Right side pain ? TECHNIQUE:? Axial sections were acquired from the lung bases to the pubic symphysis.? Coronal and sagittal reformats were performed.? For radiation dose reduction, the following was used: ?automated exposure control, adjustment of mA and/or kV according to patient size.? ? COMPARISON:? None. ? FINDINGS:? Image quality:? Excellent.? ? Lung bases:? There is minimal atelectasis.? ? Heart:? Heart is normal in size. ? URINARY: Right Kidney and Ureter: ? No stones or hydronephrosis.? There is nonspecific perinephric stranding.? No hydroureter.? ? Left Kidney and Ureter: ? No stones or hydronephrosis.? There is nonspecific perinephric stranding.? No hydroureter. ? Bladder:? Normal wall thickness. No stones. ? ? ? ABDOMEN: Liver:? Noncontrast evaluation of the liver demonstrates no discrete? mass. Gallbladder:? Within normal limits without calcified gallstones.? ? Biliary ducts:? No biliary ductal dilatation.? ? Pancreas:? Unremarkable.? ? Spleen:? Normal in size.? ? Adrenal Glands:? No adrenal nodules.? ? ? Stomach and Bowel:? Stomach, small bowel loops, and colon are normal in caliber and wall thickness.? The appendix is normal in appearance.? There is colonic diverticulosis without acute diverticulitis. Peritoneum:? No abnormal intraperitoneal fluid.? No free air.? ? Ventral Wall: ? No hernia.? Abdominal Nodes:? No retroperitoneal or mesenteric adenopathy by size criteria.? Vessels:? Aorta and inferior vena cava are normal in size.? ? PELVIS: Pelvic Organs:? Unremarkable.? ? Pelvic Nodes: No enlarged lymph nodes.? Miscellaneous: No inguinal hernias identified. ? ? ? Bones:? Visualized osseous structures demonstrate no suspicious focal lesions. IMPRESSION:? ? 1. No nephrolithiasis or obstructive uropathy. ? 2. Mild nonspecific perinephric stranding bilaterally.? Recommend correlation clinically for possible pyelonephritis. ? 3. No evidence of appendicitis. ? Dictated by: Aldo Palm M.D. on 04/20/2022 at 22:20 ? ? Approved by: Aldo Palm M.D. on 04/20/2022 at 22:23 ? ECG Data Interpretation: Sinus rhythm rate [address] elevation or depression otherwise normal EKG Treatment and Disposition Social Determinants of Health that impact treatment or disposition: None Shared decision making:: MDM Narrative Medical decision making narrative: Patient comes in from home with . Complains of constant right lower abdominal pain that radiates superiorly to the chest. Does not radiate to the groin or genitalia. No changes in his urination other this morning he usually needs a urinate but could not and it took him awhile to start urinating again. He states he gets up frequently through the night is his baseline to urinate but he did not do as much last night. No pain last night. No history of kidney stones. No abdominal surgical history. No appendectomy. No nausea or vomiting. No dysuria or hematuria. No diaphoresis. No back pain. Patient states constant sharp pain dull pain 4/10 but will go up higher at times. After evaluation exam and history, CBC CMP urinalysis CT abdomen pelvis ordered. Toradol ordered as well as normal saline. MDM CC: Right side abdominal pain Complicating co-morbidities: ITP Data collected from: Patient and Medical records reviewed: Review records no previous abdominal pain visits Differential considered: Includes but not limited to appendicitis/kidney stone/diverticulosis diverticulitis, ischemic bowel/cholecystitis Exam documented above, pertinent findings include: No abdominal tenderness Lab Test results independently reviewed as above. Pertinent findings: Baseline PET platelets when CBC for ITP Independently reviewed EKG as above Imaging studies independently reviewed: Treatments: Toradol/normal saline/Rocephin Re-evaluations: Patient feeling better after Toradol and IV fluids. Reviewed results with patient and . They do agree with Rocephin prior to departure. Prescription for antibiotics will be provided as well to treat UTI/possible pyelonephritis Discussion: Appropriate for discharge home. Exam and laboratory studies otherwise reassuring. Urinalysis was reviewed. I will treat clinically for UTI/early pyelonephritis. Return precautions reviewed with patient and . They desire discharge home. They do have family doctor to follow up with. Diagnosis: Acute UTI Disposition: see below, along with detailed discharge instructions that have been reviewed with patient as well as indications for ED re-evaluation and additional outpatient follow up Discharge Plan Departure Patient Disposition: Home Clinical Impression: Acute UTI Activity Restrictions/Additional Instructions: Prescription antibiotics have been sent to your [facility] pharmacy. Be sure to continue them tomorrow. See family doctor this week for re-evaluation. Keep well hydrated. May continue Tylenol for pain or fever. Return if worse if any questions or concerns Prescriptions: New cefpodoxime 200 mg tablet 200 mg PO BID Qty: 20 0RF Rx Instructions: must administer with a meal/food No Action ASCORBIC ACID/BIOFLAVONOIDS (C 1,635-Jvsxxuefqkqrz-Bg Cap) 1 cap PO Q DAY Qty: 0 Red Yeast Rice (#RED YEAST RICE) 600 mg PO BID Qty: 0 amlodipine 5 mg Tablet 10 mg PO DAILY losartan 100 mg Tablet 100 mg PO DAILY terazosin 10 mg Capsule 10 mg PO DAILY Glucosamine Chondroitin 550-30-1 mg Capsule 4 cap PO DAILY Vitamin Compound 8 tab DAILY resveratrol 50 mg Capsule 50 mg PO DAILY Nmn 1 g DAILY Referrals: Vamsi Narvaez MD [Primary Care Provider] - Stand Alone Forms: Patient Portal/API
[2022-04-20] MEDS: KETOROLAC 30 MG/ML VIAL 15 MG IV (21:18)
[2022-04-20 21:56] LABS: Alanine Aminotransferase 23 IU/L (<50); Alkaline Phosphatase 59 U/L (38-126); Aspartate Aminotransferase 25 IU/L (17-59); BUN Creatinine Ratio 24.5 (6-22); Bilirubin Total 0.4 mg/dL (0.2-1.3); Blood Urea Nitrogen 26 mg/dL (9-20); Carbon Dioxide 27 mmol/L (22-32); Chloride 106 mmol/L (98-107); Estimated Glomerular Filt Rate > 60 mL/min (>60); Glucose 85 mg/dL (80-110); Lipase 124 U/L (23-300); Potassium 4.3 mmol/L (3.4-5.1); Sodium 137 mmol/L (137-145); Total Protein 6.3 g/dL (6.3-8.2)
[2022-04-20] MEDS: cefTRIAXone 2,000 MG in SODIUM CHLORIDE 0.9% 100 ML 200 MG IV (23:09)
[2022-04-22 16:25] LABS: Albumin 3.9 g/dL (3.5-5.0); Albumin Globulin Ratio 1.6 (1.0-2.8); Globulin 2.4 g/dL (1.7-4.1); HEMOLYSIS < 15 (0-50)
== END 2022-04-20 23:47 | disposition home or self-care (01) ==
PROVIDERS: Emergency Provider Emergency Medicine; PCP Internal Medicine
DX: N39.0 Urinary tract infection, site not specified (principal); R10.31 Right lower quadrant pain
CPT/HCPCS: 36415; 74176; 80053; 81003; 83690; 85025; 93005; 96365; 96375; 99284; J0696; J1885

== ENCOUNTER → 2022-08-02 15:17 | Outpatient (CLI) | payer MEDICARE, SELFPAY ==
--- NOTE | 2022-08-02 | DI.NM.S_ITS ---
PROCEDURE: NM EXERCISE TREADMILL NON NUC COMPARISON: None INDICATIONS: Chest pain FINDINGS: Rest ECG sinus rhythm. Ephraim protocol 6:00, maximum heart rate 145 bpm (102% peak predicted), maximum blood pressure 182/72, 6.9 METS, NEGRITA -9%. Stress ECG sinus tachycardia, no ST segment changes, occasional PVCs. The patient did not complain of exercise-induced chest pain. IMPRESSION: Low risk study. No evidence of exercise-induced ischemia. Occasional PVCs noted. Normal hemodynamic response. Good exercise capacity. Dictated by: Teri Watt D.O. on 08/02/2022 at 16:48 Approved by: Teri Watt D.O. on 08/02/2022 at 16:52
== END ==
PROVIDERS: PCP Internal Medicine; Referring Provider Internal Medicine; Visit Provider Internal Medicine
DX: R07.89 Other chest pain (principal)
CPT/HCPCS: 93017

== ENCOUNTER → 2022-09-26 13:13 | Outpatient (CLI) | payer MEDICARE, SELFPAY ==
[2022-09-26 14:41] LABS: Add Manual Diff / Slide Review NO; Basophils Absolute Auto 100 /uL (0-100); Basophils Percent Auto 1.1 % (0-2); Eosinophils Absolute Auto 200 /uL (0-450); Eosinophils Percent Auto 3.4 % (2-4); Hematocrit 39.8 % (41-53); Hemoglobin 13.5 g/dL (13.5-17.5); Lymphocytes Absolute Auto 1000 /uL (1100-4500); Mean Corpuscular HGB Conc 33.9 % (30-36); Mean Corpuscular Hemoglobin 31.5 PG (26-34); Mean Corpuscular Volume 93.1 fL (80-100); Monocytes Absolute Auto 500 /uL (0-900); Monocytes Percent Auto 9.8 % (3-14); Neutrophils Absolute Auto 3500 /uL (1500-7000); Neutrophils Percent Auto 66.7 % (50-75); Platelet Count 87 X10^3/uL (150-400); Red Blood Cell Count 4.28 X10^6/uL (4.5-5.9); Red Cell Distribution Width 13.6 % (11.6-14.8); White Blood Cell Count 5.2 X10^3/uL (4.5-11.0)
[2022-09-26 14:56] LABS: Alanine Aminotransferase 28 IU/L (<50); Albumin 3.9 g/dL (3.5-5.0); Albumin Globulin Ratio 1.7 (1.0-2.8); Alkaline Phosphatase 65 U/L (38-126); Aspartate Aminotransferase 30 IU/L (17-59); BUN Creatinine Ratio 19.8 (6-22); Bilirubin Total 0.5 mg/dL (0.2-1.3); Blood Urea Nitrogen 20 mg/dL (9-20); Calcium 8.9 mg/dL (8.4-10.2); Carbon Dioxide 26 mmol/L (22-32); Chloride 105 mmol/L (98-107); Estimated Glomerular Filt Rate > 60 mL/min (>60); Globulin 2.3 g/dL (1.7-4.1); Glucose 90 mg/dL (80-110); HEMOLYSIS < 15 (0-50); Potassium 5.1 mmol/L (3.4-5.1); Sodium 136 mmol/L (137-145); Total Protein 6.2 g/dL (6.3-8.2)
== END ==
PROVIDERS: PCP Internal Medicine; Referring Provider Physician Assistant; Visit Provider Physician Assistant
DX: Z01.812 Encounter for preprocedural laboratory examination (principal)
CPT/HCPCS: 36415; 80053; 85025

== ENCOUNTER → 2023-01-11 13:01 | Outpatient (CLI) | payer MEDICARE, SELFPAY ==
--- NOTE | 2023-01-11 14:58 | DI.CT.S_ITS ---
PROCEDURE: CT ABDOMEN PELVIS W CON INDICATIONS: FLANK PAIN TECHNIQUE: After the administration of oral and IV contrast, axial sections were acquired from the lung bases to the pubic symphysis. Coronal and sagittal reformats were performed. For radiation dose reduction, the following was used: automated exposure control, adjustment of mA and/or kV according to patient size. COMPARISON: [facility], CT, CT KIDNEY URETER BLADDER (KUB), 04/20/2022, 21:11. FINDINGS: Image quality: Excellent. Lung bases: Unremarkable. Heart: No significant findings. ABDOMEN: Liver: Unremarkable. Gallbladder: Unremarkable. Biliary ducts: Unremarkable. Pancreas: Incidental 0.9 cm hypoattenuating lesion in the uncinate process. Spleen: Unremarkable. Adrenal Glands: Unremarkable. Kidneys and Ureters: Unremarkable. Stomach and Bowel: Mild bowel wall thickening versus underdistention throughout the descending and sigmoid colon. A few diverticula are seen without focal diverticulitis. Small bowel loops and stomach are unremarkable. Normal appendix. Peritoneum: No abnormal intraperitoneal fluid. No free air. Ventral Wall: Small fat containing periumbilical hernia. Abdominal Nodes: No retroperitoneal or mesenteric adenopathy by size criteria. Vessels: Aorta and inferior vena cava are normal in size. PELVIS: Pelvic Organs: Prostate is mildly enlarged. Bladder: Bladder wall is mildly thickened. Pelvic Nodes: No enlarged lymph nodes. Miscellaneous: No inguinal hernias are seen. Bones: Osseous bridging is seen across the right sacroiliac joint. Multilevel degenerative changes are seen in the spine. IMPRESSION: 1. No hydronephrosis or nephrolithiasis. Kidneys enhance symmetrically. 2. Mild circumferential bladder wall thickening may be related to cystitis, underdistention, or chronic outlet obstruction. 3. Mild bowel wall thickening in the descending and sigmoid colon may be secondary to underdistention or a mild nonspecific colitis. Mild colonic diverticulosis without signs of acute diverticulitis. 4. Nonspecific cyst in the uncinate process of the pancreas measuring 0.9 cm. Recommend follow-up pancreas protocol CT or MRI in 2 years based on ACR white paper guidelines. Approved by: Lucius Lucas M.D. on 01/11/2023 at 18:39
== END ==
PROVIDERS: PCP Internal Medicine; Referring Provider Internal Medicine; Visit Provider Internal Medicine
DX: R10.9 Unspecified abdominal pain (principal); K57.90 Diverticulosis of intestine, part unspecified, without perforation or abscess without bleeding; K86.2 Cyst of pancreas
CPT/HCPCS: 74177

== ENCOUNTER → 2023-09-27 15:56 | Outpatient (CLI) | payer MEDICARE, SELFPAY ==
--- NOTE | 2023-09-27 15:57 | DI.US.S_ITS ---
PROCEDURE: US CAROTID DOPPLER BI INDICATIONS: LEFT CAROTID BRUIT TECHNIQUE: Color and pulse Doppler interrogation was performed of both carotid systems, with image documentation and velocity measurements. COMPARISON: [facility], [place], US CAROTID DOPPLER BI, 08/17/2021, 14:51. FINDINGS: Stenosis calculations are based on SRU (Society of Radiologists in Ultrasound) criteria. Right side: Brachial blood pressure: 118/70 mm Hg. Common carotid artery peak systolic velocity: 131, previously 122 cm/sec. Internal carotid artery peak systolic velocity: 127, previously 82 cm/sec. Internal carotid artery end diastolic velocity: 33, previously 21 cm/sec. External carotid artery peak systolic velocity: 136, previously 124 cm/sec. ICA/CCA peak systolic ratio: 0.97, previously 0.7 . Lou scale imaging description: Calcified plaque at the carotid bulb Percent internal carotid artery stenosis: 50 to 69% Vertebral artery: Flow direction is antegrade. Left side: Brachial blood pressure: 115/63 mm Hg. Common carotid artery peak systolic velocity: 134, previously 141 cm/sec. Internal carotid artery peak systolic velocity: 106, previously 87 cm/sec. Internal carotid artery end diastolic velocity: 31, previously 25 cm/sec. External carotid artery peak systolic velocity: 156 previously 145 cm/sec. ICA/CCA peak systolic ratio: 0.79, previously 0.6 . Lou scale imaging description: Calcified plaque at the proximal ICA Percent internal carotid artery stenosis: Less than 50% stenosis . Vertebral artery: Flow direction is antegrade. IMPRESSION: Right internal carotid artery stenosis between 50 and 69%, increased compared to prior. Stable left internal carotid artery stenosis of less than 50%. Approved by: Dominique Kaur M.D.,Ph.D. on 09/28/2023 at 21:29
== END ==
PROVIDERS: PCP Internal Medicine; Referring Provider Internal Medicine; Visit Provider Internal Medicine
DX: R09.89 Other specified symptoms and signs involving the circulatory and respiratory systems (principal); I65.23 Occlusion and stenosis of bilateral carotid arteries
CPT/HCPCS: 93880

== ENCOUNTER → 2024-06-26 14:34 | Outpatient (CLI) | payer MEDICARE, SELFPAY ==
--- NOTE | 2024-06-26 14:35 | DI.CT.S_ITS ---
PROCEDURE: CT HEAD/BRAIN WO CON INDICATIONS: unilateral headache TECHNIQUE: Noncontrast 4.5 mm thick angled axial sections acquired from the foramen magnum to the vertex, with coronal and sagittal reformats. For radiation dose reduction, the following was used: automated exposure control, adjustment of mA and/or kV according to patient size. COMPARISON: None. FINDINGS: Image quality: Diagnostic. Ventricles and cortical sulci are moderately dilated commonly represents a pattern of atrophy. Moderate cerebellar atrophy. Mild areas of low-attenuation in the periventricular and deep white matter commonly related to chronic small vessel ischemic changes. Moderate vascular calcifications bilateral cavernous, supraclinoid carotids and distal vertebral arteries. No CT evidence of intracranial hemorrhage, mass lesion, mass effect, acute or subacute infarct. IMPRESSION: Atrophy and chronic white matter small vessel ischemic changes. No CT evidence of intracranial hemorrhage. If symptoms persist or worsen, or there is high clinical suspicion of intracranial abnormality, MRI could be performed. Dictated by: Heron Webber M.D. on 06/26/2024 at 15:24 Approved by: Heron Webber M.D. on 06/26/2024 at 15:27
== END ==
LOC: CT 14:35
PROVIDERS: PCP Family Medicine; Referring Provider Family Medicine; Visit Provider Family Medicine
DX: R51.9 Headache, unspecified (principal)
CPT/HCPCS: 70450

== ENCOUNTER → 2025-01-03 12:14 | Outpatient (CLI) | payer MEDICARE, SELFPAY ==
--- NOTE | 2025-01-03 | DI.CT.S_ITS ---
PROCEDURE: CT ABDOMEN PANCREATIC PROTOCOL INDICATIONS: recheck pancreatic cyst TECHNIQUE: Both before and after the administration of intravenous contrast, 3 mm thick pancreatic-phase images acquired from the diaphragm to the iliac crests. 3 mm thick coronal and sagittal reformats were performed. For radiation dose reduction, the following was used: automated exposure control, adjustment of mA and/or kV according to patient size. COMPARISON: None. FINDINGS: Image quality: Diagnostic. Lower chest: Unremarkable. ABDOMEN: Pancreas: An ovoid cystic mass measuring 2.0 x 1.2 by 1.2 cm is present in the dorsal uncinate process. There is close association to a ductal side branch and possible connection to the main pancreatic duct. The pancreatic duct is nondilated, measuring up to 3 mm in the pancreatic head and not well seen distally. No suspicious enhancement or wall thickening. This has increased in size compared to prior. Liver: No solid mass. Gallbladder: No wall thickening or calcified stones. Biliary ducts: No biliary dilation. Adrenal Glands: No nodules. Spleen: Size is within normal limits. Kidneys and Ureters: No hydronephrosis. No solid mass. No complex renal cystic lesion which requires follow up. Stomach and Bowel: Stomach and visible bowel loops are within normal limits. Peritoneum: No abnormal intraperitoneal fluid. No free air. Ventral Wall: Tiny fat containing umbilical hernia. Abdominal Nodes: No retroperitoneal or mesenteric adenopathy by size criteria. Vessels: The abdominal aorta, IVC, and portal vein are of normal caliber. Moderate abdominal aortic atherosclerotic calcification. Bones: No aggressive osseous abnormality. Multilevel spondylitic changes. 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 Given patient's age, annual follow-up is recommended to ensure growth stabilization. No adenopathy or other suspicious findings. Dictated by: Gabriela Aquino M.D. on 01/03/2025 at 22:43 Approved by: Gabriela Aquino M.D. on 01/03/2025 at 22:58
== END ==
PROVIDERS: PCP Family Medicine; Referring Provider Family Medicine; Visit Provider Family Medicine
DX: K86.2 Cyst of pancreas (principal)
CPT/HCPCS: 74170; Q9967